=== PATIENT | male | born 1975 | race Caucasian/White ===

== ENCOUNTER 2021-12-03 19:26 | Emergency (ER) | payer SELFPAY ==
--- NOTE | 2021-12-03 19:38 | PC.NURSE ---
Pt arrived and refused to wear mask multiple times responded NO! when asked to wear mask while in facility. Finally agreed for security to assist with mask.
--- NOTE | 2021-12-03 19:43 | PC.NURSE ---
Immediately after checking in, pt removed mask and stated that he would be outside. This RN notified pt that we do not call for pt's not in ED lobby, and pt continued on motorized scooter out of ED. Pt heard yelling as if talking on phone, then returned a short time later as this RN was checking in another pt, and proceeded to yell You can't legally make me wear a mask! Pt proceeded outside out of this RN's view. Notified by ED security that pt had left.
== END 2021-12-04 02:52 | disposition left against medical advice (07) ==
LOC: ANHED 19:49
PROVIDERS: Emergency Provider Emergency Medicine
DX: Z53.21 Procedure and treatment not carried out due to patient leaving prior to being seen by health care provider (principal)
CPT/HCPCS: 99199

== ENCOUNTER 2022-07-25 02:34 | Emergency (ER) | payer MEDICARE, SELFPAY ==
--- NOTE | ~2022-07-25 | XR_ITS ---
EXAMINATION: XR chest 1V portable INDICATION: Back pain radiating to the right arm TECHNIQUE: Portable AP chest at 0323 hours COMPARISON: None available FINDINGS: The lungs are free of acute opacities. No pleural effusion or pneumothorax. The heart size is upper limits of normal in size for technique. The visualized osseous structures are unremarkable. IMPRESSION: 1. No acute cardiopulmonary abnormality. Reviewed, dictated and finalized at location A. [employer]
[2022-07-25 02:46] VITALS: BP 128/98; PULSE 75; RESP 16; TEMP 36.7; O2SAT 99
--- NOTE | 2022-07-25 03:13 | ED.GENADULT ---
HPI - General Adult General Chief complaint: Back Pain/Injury Stated complaint: upper back pain Time Seen by Provider: 07/25/22 02:59 History of Present Illness HPI narrative: This is a 47-year-old male with history of cerebral palsy coming in the ED with a chief complaint of thoracic back pain. Patient says for last 36 hours he has been having a pain in the thoracic region of his back that he describes as a burning/stabbing / aching /stinging pain. is constant, 7/10 intensity, and comes and goes. Worse with movement. patient has had pain like this in the past has been fixed by his chiropractor. He is attempting to get in to see his chiropractor. Goal of today's visit is pain control. Patient denies fever, chills, history of IV drug abuse, history of cancer. Related Data Allergies Allergy/AdvReac Type Severity Reaction Status Date / Time No Known Allergies Allergy Verified 07/25/22 03:37 Review of Systems Review of Systems: CONSTITUTIONAL: Denies night sweats. EYES: No eye pain ENT: Denies rhinorrhea CARDIOVASCULAR: Denies palpitations RESPIRATORY: Denies hemoptysis GASTROINTESTINAL: Denies hematemesis GENITOURINARY: Denies hematuria. SKIN: Denies rash MUSCULOSKELETAL: Denies myalgia. NEUROLOGIC: Denies weakness. PSYCHIATRIC: Denies delusions PMFSH Past Medical History Medical History (Updated 07/25/22 @ 03:19 by Kieran Hinojosa MD) Cerebral palsy Social History Social History (Updated 07/25/22 @ 03:15 by Kieran Hinojosa MD) Social History: Patient use marijuana daily, denies tobacco or alcohol use Exam Narrative: APPEARANCE: patient appears uncomfortable Head: atraumatic. EYES: EOMI, NOSE: Atraumatic NECK: Trachea midline RESPIRATORY: No increased rate of breathing, clear to auscultation bilaterally Back: Patient has tenderness to palpation in the paraspinal muscles around T 5/6. No overlying skin changes. No step-offs. CARDIOVASCULAR: RRR, ABDOMINAL: Non-distended MUSCULOSKELETAl: No obvious deformities NEURO: Alert. Moving 4/4 extremities, movements are spastic which is normal for the patient. SKIN:: Warm, dry. Normal color PSYCHIATRIC: Normal affect Course Vital Signs Vital signs: Vital Signs Temperature 98.0 F 07/25/22 02:46 Pulse Rate 75 07/25/22 02:46 Respiratory Rate 16 07/25/22 02:46 Blood Pressure 128/98 H 07/25/22 02:46 Pulse Oximetry 99 07/25/22 02:46 Oxygen Delivery Room Air 07/25/22 02:46 Temperature 98.0 F 07/25/22 02:46 Pulse Rate 75 07/25/22 02:46 Respiratory Rate 16 07/25/22 02:46 Blood Pressure 128/98 H 07/25/22 02:46 Pulse Oximetry 99 07/25/22 02:46 Oxygen Delivery Room Air 07/25/22 02:46 Medical Decision Making MDM Narrative Medical decision making narrative: this is a cerebral palsy patient presenting with back pain. Patient will be given Toradol and Robaxin. patient believes he has a slipped rib. Physical exam did not reveal anything out of place. Chest x-ray was ordered which was normal. Patient be discharged home with primary care follow-up. and also follow up with his chiropractor if he prefers. Vital Signs Vital Signs: Vital Signs Temperature 98.0 F 07/25/22 02:46 Pulse Rate 75 07/25/22 02:46 Respiratory Rate 16 07/25/22 02:46 Blood Pressure 128/98 H 07/25/22 02:46 Pulse Oximetry 99 07/25/22 02:46 Oxygen Delivery Room Air 07/25/22 02:46 Temperature 98.0 F 07/25/22 02:46 Pulse Rate 75 07/25/22 02:46 Respiratory Rate 16 07/25/22 02:46 Blood Pressure 128/98 H 07/25/22 02:46 Pulse Oximetry 99 07/25/22 02:46 Oxygen Delivery Room Air 07/25/22 02:46 Discharge Plan Discharge Clinical Impression: Back pain Patient Disposition: Home, Self-Care Condition: Stable Instructions: Antibiotic Form, Back Pain (ED) Additional Instructions: Please take Motrin, Tylenol and Robaxin for pain control. Please do not take more than 4000 mg
[2022-07-25] MEDS: methocarbamoL 750 MG TABLET 1500 MG PO (03:26)
[2022-07-25] MEDS: KETOROLAC 30 MG/ML VIAL (*BKC) 15 MG IM (03:27)
== END 2022-07-25 04:01 | disposition home or self-care (01) ==
LOC: ANHED 03:36
PROVIDERS: Emergency Provider Emergency Medicine
DX: M54.6 Pain in thoracic spine (principal); G80.9 Cerebral palsy, unspecified
CPT/HCPCS: 71045; 96372; 99283; A9270; J1885